=== PATIENT | male | born 1945 | race American Indian/Alaskan Native ===

== ENCOUNTER 2017-08-26 07:50 | Day surgery (SDC) | payer MEDICARE ==
[2017-08-18 13:25] VITALS: BMI 27.3
[2017-08-26] MEDS ORDERED: Propofol 10 mg/ml Inj (20 ML) ONE (09:16)
[2017-08-26] MEDS ORDERED: Sodium Chloride 0.9% 1,000 ML IV SCH (09:45)
[2017-08-26 10:52] VITALS: BP 138/74; PULSE 62; RESP 16; TEMP 97.5; O2SAT 98
== END 2017-08-26 11:10 | disposition home or self-care (01) ==
LOC: ENDO 07:50
PROVIDERS: ATTEND Specialist
DX: C20 Malignant neoplasm of rectum (principal); K57.30 Diverticulosis of large intestine without perforation or abscess without bleeding; K64.8 Other hemorrhoids; Z86.010 Personal history of colon polyps
CPT/HCPCS: 45380; 88305; J2704; J7030